=== PATIENT | male | born 1980 | race Hispanic/Latino ===

== ENCOUNTER 2022-05-01 08:12 | Emergency (ER) | payer OTHER ==
[~2022-05-01] VITALS: Ht 175.3 cm; Wt 113.9 kg
[2022-05-01 08:41] LABS: BASOPHILS % (AUTO) 0.2 % (0.0-5.0); EOSINOPHILS % (AUTO) 0.1 % (0.0-8.0); HEMATOCRIT 37.4 % (42-54); MEAN CORPUSCULAR HEMOGLOBIN 25.2 pg (27.0-33.0); MEAN CORPUSCULAR VOLUME 81.3 fL (79-99); MONOCYTES % (AUTO) 22.1 % (3.0-13.0); NEUTROPHILS % (AUTO) 1.3 % (40.0-77.0); NUCLEATED RED BLOOD CELLS 0.1 % (0.0-0.19); PLATELET COUNT (AUTO) 16 K/uL (130-400); RED CELL DISTRIBUTION WIDTH 16.2 % (11.0-15.5)
[2022-05-01] MEDS ORDERED: 0.9% NACL 500ML IV.SOLN 500 ML IV ONE (09:00)
[2022-05-01] MEDS ORDERED: ONDANSETRON 4MG INJ IVP ONE (09:00)
[2022-05-01 09:02] LABS: ABG BASE EXCESS 2.7 mmol/L (-2.0-3.0); ABG HCO3 26.4 mmol/L (21.0-28.0); ABG OXYGEN SATURATION 89.4 % (95.0-99.0); ABG PCO2 37 mmHg (35-48)
[2022-05-01 09:03] LABS: ALBUMIN 3.1 g/dL (3.5-5.0); CREATININE 1.2 mg/dL (0.5-1.5); POTASSIUM 4.7 mmol/L (3.5-5.1); TOTAL PROTEIN, SERUM 6.3 g/dL (6.0-8.3)
[2022-05-01 09:13] LABS: WHITE BLOOD COUNT (AUTO) 257.9 K/uL (4.8-10.8)
[2022-05-01 09:15] LABS: MAGNESIUM 1.9 mg/dL (1.80-2.40)
[2022-05-01] MEDS ORDERED: ZOSYN 3.375GM +NS 50ML IVPB ONE (09:30)
[2022-05-01] MEDS ORDERED: MORPHINE 4 MG SYG IVP ONE ×2 (09:30→12:30)
[2022-05-01] MEDS ORDERED: ACETAMINOPHEN 500 MG TABLET PO ONE (09:30)
[2022-05-01] MEDS ORDERED: LACTATED RINGERS 1000ML 1,000 ML IV ONE (10:00)
[2022-05-01] MEDS ORDERED: FAMOTIDINE 20MG VIAL IV ONE (10:00)
[2022-05-01 10:03] LABS: BLASTS, MANUAL % 77 (0-0); LYMPHOCYTES % (MANUAL) 17 % (22-44); MONOCYTES % (MANUAL) 1 % (2-9); OTHER CELLS,MANUAL % 4 (0-0); SEGMENTED NEUTROPHILS % 1 % (40-70)
[2022-05-01 10:04] LABS: MAN.DIFF COMMENT-IMPRESSION MANUAL DIFFERENTIAL
[2022-05-01 11:48] LABS: APPEARANCE,URINE CLEAR (CLEAR); BILIRUBIN,URINE NEGATIVE (NEGATIVE); COLOR,URINE YELLOW (YELLOW); GLUCOSE, URINE (UA) >=1000 mg/dL (NEGATIVE); KETONES,URINE 40 mg/dL (NEGATIVE); LEUKOCYTE ESTERASE ,URINE NEGATIVE Leu/uL (NEGATIVE); NITRATE,URINE NEGATIVE (NEGATIVE); OCCULT BLOOD,URINE NEGATIVE (NEGATIVE); PH,URINE 5.5 (5.0-8.0); PROTEIN,URINE 20 mg/dL (NEGATIVE); UROBILINOGEN,URINE 0.2 mg/dL (0.2-1.0)
[2022-05-01 11:53] LABS: RBC,URINE 0-1 /HPF (0-1); WBC,URINE 0-1 /HPF (0-1)
[2022-05-01 13:19] VITALS: BP 135/95
== END 2022-05-01 13:21 | disposition short-term general hospital (02) ==
LOC: EDH 08:12
DX: D69.6 Thrombocytopenia, unspecified (principal); R10.10 Upper abdominal pain, unspecified; R73.9 Hyperglycemia, unspecified; R50.9 Fever, unspecified
CPT/HCPCS: 99291; 96365; 96375; 76700; 71045; 96366; 87635; 96361; 82270; 83735; 84484; 80053; 82803; 83690; 85025; 87040 ×2; 87804 ×2; 81001; 36415; 96376; 93005; 36600; 85018; 82435; 82947; 84132; 84295; 85007; 83605 ×3; C9803; J3490; J2405; J2270 ×2; J2543